=== PATIENT | female | born 1955 | race Caucasian/White ===

== ENCOUNTER 2022-06-07 08:20 | Inpatient (IN) ==
--- NOTE | 2022-05-24 13:13 | PAT Medication Instructions ---
Medication Instructions Date of Service May 24, 2022 Home Medications Flovent 1 dose INHALATION Q OTHER DAY albuterol 90 mcg/actuation aerosol inhaler 90 mcg INHALATION QID PRN albuterol sulfate 1 dose INHALATION UD PRN bupropion HCl 300 mg 24 hr tablet, extended release 300 mg PO QPM calcium carbonate 600 mg-vitamin D3 20 mcg (800 unit) chewable tablet (Caltrate 600 plus D) 1 tab PO QPM cholecalciferol (vitamin D3) 50 mcg (2,000 unit) tablet (Vitamin D3) 50 mcg PO QAM cyanocobalamin (vitamin B-12) 1,000 mcg/mL injection solution 1,000 mcg IM MONTHLY cyclosporine 0.05 % eye drops in a dropperette (Restasis) 1 drp OPHTHALMIC (EYE) Q12H famotidine 20 mg tablet 20 mg PO DAILY PRN ferrous sulfate 325 mg (65 mg iron) tablet (iron) 325 mg PO QAM hydrocodone 10 mg-acetaminophen 325 mg tablet 1 tab PO TID lisinopril 10 mg-hydrochlorothiazide 12.5 mg tablet 1 tab PO QAM magnesium oxide 400 mg PO BID megestrol 40 mg tablet 40 mg PO BID montelukast 10 mg tablet (Singulair) 10 mg PO PM omega 8-mrv-cdf-fish oil 1,200 mg (144 mg-216 mg) capsule (Fish Oil) 1 cap PO QPM Continue as directed Flovent 1 dose INHALATION Q OTHER DAY ASK your prescriber and surgeon megestrol 40 mg tablet 40 mg PO BID STOP taking 2 weeks before surgery (or as soon as possible if surgery is within 2 weeks) omega 7-uua-wxz-fish oil 1,200 mg (144 mg-216 mg) capsule (Fish Oil) 1 cap PO QPM DO NOT take the morning of surgery cholecalciferol (vitamin D3) 50 mcg (2,000 unit) tablet (Vitamin D3) 50 mcg PO QAM cyanocobalamin (vitamin B-12) 1,000 mcg/mL injection solution 1,000 mcg IM MONTHLY ferrous sulfate 325 mg (65 mg iron) tablet (iron) 325 mg PO QAM lisinopril 10 mg-hydrochlorothiazide 12.5 mg tablet 1 tab PO QAM magnesium oxide 400 mg PO BID Take morning of surgery With a small sip of water, OTHERWISE NOTHING TO EAT OR DRINK AFTER MIDNIGHT: albuterol 90 mcg/actuation aerosol inhaler 90 mcg INHALATION QID PRN (if needed) albuterol sulfate 1 dose INHALATION UD PRN (use if needed; please bring rescue inhaler with you to hospital day of surgery if possible) cyclosporine 0.05 % eye drops in a dropperette (Restasis) 1 drp OPHTHALMIC (EYE) Q12H famotidine 20 mg tablet 20 mg PO DAILY PRN (if needed) hydrocodone 10 mg-acetaminophen 325 mg tablet 1 tab PO TID (if needed) Take evening before surgery albuterol 90 mcg/actuation aerosol inhaler 90 mcg INHALATION QID PRN (if needed) albuterol sulfate 1 dose INHALATION UD PRN (if needed) bupropion HCl 300 mg 24 hr tablet, extended release 300 mg PO QPM calcium carbonate 600 mg-vitamin D3 20 mcg (800 unit) chewable tablet (Caltrate 600 plus D) 1 tab PO QPM cyclosporine 0.05 % eye drops in a dropperette (Restasis) 1 drp OPHTHALMIC (EYE) Q12H famotidine 20 mg tablet 20 mg PO DAILY PRN(if needed) hydrocodone 10 mg-acetaminophen 325 mg tablet 1 tab PO TID magnesium oxide 400 mg PO BID montelukast 10 mg tablet (Singulair) 10 mg PO PM Other Notes If you have any questions please call us at [phone] or [phone] or [phone] or [phone]
--- NOTE | 2022-05-25 13:25 | Anesthesiology Consultation ---
Date of Service May 25, 2022 Assessment & Plan (1) Encounter for pre-operative examination: - surgeon ordered medical clearance. - COVID screening: Per assessment on 05/25/2022: Travel screen negative, no known COVID-19 positive contacts or current COVID-19 related symptoms in past 2 weeks. Pt vaccinated. Surgeon arranging preop COVID testing, scheduled 06/05/2022. Awaiting results. Chart Review Chart Review: Pending: Refer to Additional Notes / Consult section and Patient seen in Pre Admission Testing Teaching & Discussion Pre-Anesthesia Teaching/Discussion Notes: Instructed NPO after midnight before surgery, except medications with 15 cc of water. Medication instructions provided according to the PAT guidelines. History Surgery Operation Date: 06/07/22 10:05 Proposed Procedures p L3-L4 Decompression Fusion Possible L4-L5, Spinal Cord Monitoring - Heron Rojas DO Height/Weight Height: 5 ft 5 in Weight: 98.8 kg Allergies Allergy/AdvReac Type Severity Reaction Status Date / Time enoxaparin [From Lovenox] Allergy Hives Verified 05/24/22 12:11 iodine Allergy Swelling Verified 05/24/22 12:11 of Lip/Tongue/Throat minocycline [From Minocin] Allergy Rash Verified 05/24/22 12:11 Medications Home Medications Medication Instructions Recorded Confirmed Last Taken Flovent 1 dose INHALATION Q OTHER DAY 05/24/22 05/24/22 Unknown albuterol 90 mcg/actuation aerosol 90 mcg INHALATION QID PRN 05/24/22 05/24/22 U nknown inhaler albuterol sulfate 1 dose INHALATION UD PRN 05/24/22 05/24/22 Unknown bupropion HCl 300 mg 24 hr tablet, 300 mg PO QPM 05/24/22 05/24/22 Unknown extended release calcium carbonate 600 mg-vitamin 1 tab PO QPM 05/24/22 05/24/22 Unknown D3 20 mcg (800 unit) chewable tablet (Caltrate 600 plus D) cholecalciferol (vitamin D3) 50 50 mcg PO QAM 05/24/22 05/24/22 Unknown mcg (2,000 unit) tablet (Vitamin D3) cyanocobalamin (vitamin B-12) 1,000 mcg IM MONTHLY 05/24/22 05/24/22 Unknown 1,000 mcg/mL injection solution cyclosporine 0.05 % eye drops in a 1 drp OPHTHALMIC (EYE) Q12H 05/24/22 05/24/22 Unknown dropperette (Restasis) famotidine 20 mg tablet 20 mg PO DAILY PRN 05/24/22 05/24/22 Unknown ferrous sulfate 325 mg (65 mg 325 mg PO QAM 05/24/22 05/24/22 Unknown iron) tablet (iron) hydrocodone 10 mg-acetaminophen 1 tab PO TID 05/24/22 05/24/22 Unknown 325 mg tablet lisinopril 10 1 tab PO QAM 05/24/22 05/24/22 Unknown mg-hydrochlorothiazide 12.5 mg tablet magnesium oxide 400 mg PO BID 05/24/22 05/24/22 Unknown megestrol 40 mg tablet 40 mg PO BID 05/24/22 05/24/22 Unknown montelukast 10 mg tablet 10 mg PO PM 05/24/22 05/24/22 Unknown (Singulair) omega 3-mpq-jgt-fish oil 1,200 mg 1 cap PO QPM 05/24/22 05/24/22 Unknown (144 mg-216 mg) capsule (Fish Oil) methocarbamol 05/25/22 Unknown Past Medical History Medical History (Updated 05/25/22 @ 14:08 by Fernanda Waldron PA-C) Anxiety and depression Asthma rare use of PRN inh; follows with Dr. Vega-last rescue inhaler use > several months Chronic kidney disease (CKD) Stage III; follows with [facility] COPD (chronic obstructive pulmonary disease) and h/o RLL wedge resection DDD (degenerative disc disease) Endometrial cancer with lung mets - dx/d 2013; treated surgically + chemo Fibromyalgia GERD (gastroesophageal reflux disease) controlled, stable per pt History of basal cell carcinoma skin, R medial to eye History of migraine History of phlebitis HLD (hyperlipidemia) HTN (hypertension) Microscopic hematuria "present for years" Osteoporosis Pt denies Scoliosis Shuffling gait Sleep apnea CPAP-intermittent use d/t frequent nocturnal awakenings to void Spinal stenosis Thyroid nodule Patient denies h/o stroke, seizures, heart attack, heart failure, DM, blood clots or blood transfusions. Exercise / Class Metabolic Activity III < 4 Walking/Shop/Light housework (SOB with activities chronic per pt with asthma/lung resection; denies chest discomfort; denies change or worsening) Past Family History Family History Other No family history of adverse response to anesthesia Past Surgical History Surgical History (Updated 05/25/22 @ 14:08 by Fernanda Waldron PA-C) History of basal cell carcinoma (BCC) excision History of bilateral breast reduction surgery History of carpal tunnel release History of colonoscopy History of cystoscopy History of esophagogastroduodenoscopy (EGD) History of non-cataract eye surgery History of surgery RLL wedge resection 2013 History of total abdominal hysterectomy and bilateral salpingo-oophorectomy S/P thyroid biopsy benign Past Anesthesia History No Hx of Anesthesia Complications and No Family Hx of Anesthesia Complications History of PONV No Hx of PONV and No Hx of Motion Sickness Social History Smoking Status: Never smoker Do You Dip or Chew Tobacco: No Hx Alcohol Use: No Hx Substance Use: Yes substance use type: marijuana Substance Use Type Other:: medical marijuana Last Used Substance: Unknown Last Used Substance Other:: rare use of medical marijuana per pt-advised Review of Systems Patient denies chest pain, fever, chills or palpitations. Physical Exam Vital Signs Vitals BP 117/72 P 81 TEMP 98.7 SP02 99% on RA RESP 17 Physical Full cervical extension range of motion without pain TMD 3.5 finger breaths Mallampati Score 2 Dentition: intact, implants-one lower back, several sides bilat; denies chipped or loose teeth, caps/crowns or bridges. She reports recent dental work and was advised she needs to notify surgeon's office. She verbalized understanding and agreement, denied questions or concerns regarding this. Lungs: normal respiratory effort. Clear throughout to auscultation, no adventitious breath sounds Cardiac: regular rate and rhythm, no murmurs noted Carotid arteries: negative bruit bilat Lab Results Anesthesia Preop Results Results Anesthesia Widget: WBC 7.89 K/uL (4.8-10.8) 05/25/22 Hgb 12.1 g/dL (12.0-16.0) 05/25/22 Hct 36.8 % (37-47) L 05/25/22 Plt 369 K/uL (130-400) 05/25/22 Na 137 mmol/L (136-145) 05/25/22 K 4.0 mmol/L (3.5-5.1) 05/25/22 Cl 101 mmol/L (98-107) 05/25/22 CO2 27 mmol/L (21-32) 05/25/22 BUN 24 mg/dl (6-23) H 05/25/22 Creat 1.34 mg/dl (0.6-1.2) H 05/25/22 Glucose Level 103 mg/dl (70-99(Fasting)) H 05/25/22 PT 9.9 Seconds (9.0-12.0) 05/25/22 PTT 25.9 Seconds (21.0-31.0) 05/25/22 INR 0.9 (0.9-1.1) 05/25/22 Urine Color Yellow 05/25/22 Urine Appearance Clear (Clear) 05/25/22 Urine pH 6.5 (4.5-7.5) 05/25/22 Urine Specific [place] 1.011 (1.000-1.030) 05/25/22 Urine Protein Negative (Negative) 05/25/22 Urine Glucose (UA) Negative (Negative) 05/25/22 Urine Ketones Negative (Negative) 05/25/22 Urine Blood Trace (Negative) H 05/25/22 Urine Nitrite Negative (Negative) 05/25/22 Urine Bilirubin Negative (Negative) 05/25/22 Urine Urobilinogen Negative (Negative) 05/25/22 Urine Leukocyte Esterase Negative (Negative) 05/25/22 Urine WBC (Auto) 0 /hpf (0-5) 05/25/22 Urine RBC (Auto) 0-4 /hpf (0-4) 05/25/22 Urine Hyaline Casts (Auto) 0 /lpf (0-5) 05/25/22 Urine Epithelial Cells (Auto) 0-5 /lpf (0-5) 05/25/22 Urine Bacteria (Auto) Negative (Negative) 05/25/22 Blood Type O Positive 05/25/22 Antibody Screen NEGATIVE 05/25/22 Testing Electrocardiogram Date: 05/25/22 NSR, rate 76 bpm Chest X-Ray Date: 05/25/22 No lines and tubes are seen. Postsurgical changes are noted in the right lung. The cardiomediastinal silhouette is normal. The lungs are clear. No evidence of pleural effusion or pneumothorax. Scoliosis and multilevel compression deformities are seen in the spine. IMPRESSION: No acute chest disease.
[~2022-06-07 08:20] MED LIST: ACETAMINOPHEN 500 MG TAB PO SCH; GABAPENTIN 300 MG CAP PO SCH; LR 15ML/HR IV SCH; ceFAZolin 2000MG 2,000 MG/15 ML SYR IV SCH
[2022-06-07] MEDS ORDERED: ATROPINE SULFATE 0.1 MG/ML 10ML SYR IV PRN (08:36)
[2022-06-07] MEDS ORDERED: MEPERIDINE HCL 25 MG/ML CARP/VIAL IV PRN (08:36)
[2022-06-07] MEDS ORDERED: LABETALOL HCL IV 5 MG/ML 20ML IV PRN (08:36)
[2022-06-07] MEDS ORDERED: ePHEDrine sulfate 50 MG/ML AMP IV PRN (08:36)
[2022-06-07] MEDS ORDERED: ONDANSETRON INJ 2 MG/ML 2 ML VIAL IV PRN ×2 (08:36→14:18)
[2022-06-07] MEDS ORDERED: PHENYLEPHRINE 100MCG/ML 5ML SYR IV PRN (08:36)
[2022-06-07] MEDS ORDERED: PROPOFOL IV EMULSION 10 MG/ML 20 ML VIAL IV ONE (09:36)
[2022-06-07] MEDS ORDERED: LIDOCAINE 2% 2 ML VIAL/AMP(20MG/ML) INFIL ONE (09:36)
[2022-06-07] MEDS ORDERED: ONDANSETRON INJ 2 MG/ML 2 ML VIAL ONE (09:36)
[2022-06-07] MEDS ORDERED: MIDAZOLAM HCL 1 MG/ML 2ML VIAL ONE (09:36)
[2022-06-07] MEDS ORDERED: ROCURONIUM BROMIDE 10 MG/ML 5 ML VIAL IV ONE (09:36)
[2022-06-07] MEDS ORDERED: DEXAMETHASONE SOD INJ 4 MG/ML VIAL ONE (09:36)
[2022-06-07] MEDS ORDERED: fentaNYL citrate 100 MCG/2 ML VIAL ONE (09:36)
--- NOTE | 2022-06-07 09:53 | History & Physical Bridge Note ---
Date of Service June 07, 2022 History & Physical Bridge Note I have examined the patient, reviewed the History & Physical and in the interval since the performance of the History & Physical I have noted the following changes of clinical significance: no changes noted
--- NOTE | 2022-06-07 09:56 | History & Physical Report ---
Date of Service June 07, 2022 Assessment & Plan (1) Neurogenic claudication due to lumbar spinal stenosis: Plan: L3-L4 decompression and fusion, possible L4-L5 History of Present Illness Chief Complaint: Back and leg pain Primary Care Provider: Austin Disla This is a 58-year-old female who presents with chronic persistent back and leg pain. Failing course of nonoperative care she is here for surgical invention. Allergies Allergy/AdvReac Type Severity Reaction Status Date / Time enoxaparin [From Lovenox] Allergy Hives Verified 06/07/22 08:54 iodine Allergy Swelling Verified 06/07/22 08:54 of Lip/Tongue/Throat minocycline [From Minocin] Allergy Rash Verified 06/07/22 08:54 Home Medications Medication Instructions Recorded Confirmed Type Flovent 1 dose inhalation Q OTHER DAY 05/24/22 06/07/22 History albuterol 90 mcg/actuation aerosol 90 mcg inhalation QID PRN sob 05/24/22 05/24/22 History inhaler albuterol sulfate 1 dose inhalation UD PRN sob 05/24/22 06/07/22 History bupropion HCl 300 mg 24 hr tablet, 300 mg PO QPM 05/24/22 06/07/22 History extended release calcium carbonate 600 mg-vitamin 1 tab PO QPM 05/24/22 06/07/22 History D3 20 mcg (800 unit) chewable tablet (Caltrate 600 plus D) cholecalciferol (vitamin D3) 50 50 mcg PO QAM 05/24/22 06/07/22 History mcg (2,000 unit) tablet (Vitamin D3) cyanocobalamin (vitamin B-12) 1,000 mcg IM MONTHLY 05/24/22 06/07/22 History 1,000 mcg/mL injection solution cyclosporine 0.05 % eye drops in a 1 drp ophthalmic (eye) Q12H 05/24/22 06/07/22 History dropperette (Restasis) famotidine 20 mg tablet 20 mg PO DAILY PRN gerd 05/24/22 06/07/22 History ferrous sulfate 325 mg (65 mg 325 mg PO QAM 05/24/22 06/07/22 History iron) tablet (iron) hydrocodone 10 mg-acetaminophen 1 tab PO TID 05/24/22 06/07/22 History 325 mg tablet lisinopril 10 1 tab PO QAM 05/24/22 06/07/22 History mg-hydrochlorothiazide 12.5 mg tablet magnesium oxide 400 mg PO BID 05/24/22 06/07/22 History megestrol 40 mg tablet 40 mg PO BID 05/24/22 06/07/22 History montelukast 10 mg tablet 10 mg PO PM 05/24/22 06/07/22 History (Singulair) omega 0-axl-smr-fish oil 1,200 mg 1 cap PO QPM 05/24/22 06/07/22 History (144 mg-216 mg) capsule (Fish Oil) methocarbamol 05/25/22 History Past Med/Surg History Medical History (Updated 06/07/22 @ 09:54 by Heron Rojas DO) Anxiety and depression Asthma rare use of PRN inh; follows with Dr. Vega-last rescue inhaler use > several months Chronic kidney disease (CKD) Stage III; follows with [facility] COPD (chronic obstructive pulmonary disease) and h/o RLL wedge resection DDD (degenerative disc disease) Endometrial cancer with lung mets - dx/d 2013; treated surgically + chemo Fibromyalgia GERD (gastroesophageal reflux disease) controlled, stable per pt History of basal cell carcinoma skin, R medial to eye History of migraine History of phlebitis HLD (hyperlipidemia) HTN (hypertension) Microscopic hematuria "present for years" Obesity Osteoporosis Pt denies Scoliosis Shuffling gait Sleep apnea CPAP-intermittent use d/t frequent nocturnal awakenings to void Spinal stenosis Thyroid nodule Surgical History History of basal cell carcinoma (BCC) excision History of bilateral breast reduction surgery History of carpal tunnel release History of colonoscopy History of cystoscopy History of esophagogastroduodenoscopy (EGD) History of non-cataract eye surgery History of surgery RLL wedge resection 2013 History of total abdominal hysterectomy and bilateral salpingo-oophorectomy S/P thyroid biopsy benign Family History Other No family history of adverse response to anesthesia Social History Smoking Status: Never smoker Second Hand Exposure: No; Do You Dip or Chew Tobacco: No; Hx Alcohol Use: No Hx Substance Use: Yes Last Used Substance: Unknown Last Used Substance Other:: rare use of medical marijuana per pt-advised Substance Use Type Other:: medical marijuana Preferred Language: Turkmen Communication Ability: Effective Senior Hardware Design Engineer Required: No Beliefs That Will Affect Care: None Current Living Situation: Spouse Feels Safe at Home: Yes Safety Concerns: Feels Safe At This Time Assistive Devices: CPAP and Glasses Physical Exam Physical Exam: Patient is alert and oriented Heart regular rate and rhythm Lungs clear Results & Data Results & Data ([facility]) Vital Signs (Past 12 Hours) Vital Signs Temp Pulse Resp BP Pulse Ox O2 Del Method 06/07/22 09:06 36.5 C 87 18 154/75 H 100 Room Air
[2022-06-07] MEDS ORDERED: ceFAZolin 330 MG/ML 1 GM VIAL ONE (10:22)
[2022-06-07] MEDS ORDERED: BUPIVACAINE/EPINEPHRINE 0.25% 1:200,000 30 ML VIAL ONE (10:22)
[2022-06-07] MEDS ORDERED: PHENYLEPHRINE 100MCG/ML 5ML SYR ONE (11:20)
[2022-06-07] MEDS ORDERED: GLYCOPYRROLATE 0.2 MG/ML VIAL ONE (11:36)
[2022-06-07] MEDS ORDERED: NEOSTIGMINE METHYLSULFATE 1 MG/ML 10ML VIAL ONE (11:36)
[2022-06-07] MEDS ORDERED: FLOSEAL HEMOSTATIC MATRIX 10ML TOP ONE (12:18)
--- NOTE | 2022-06-07 12:27 | Operative Report ---
Post Operative Report Pre & Post Diagnosis Operation Date: 06/07/22 10:05 Pre-Op Diagnosis: Neurogenic claudication due to lumbar spinal stenosis Post-Op Diagnosis: Neurogenic claudication due to lumbar spinal stenosis I identified the patient and participated in the time-out.: Yes Procedure Operation Date: 06/07/22 10:05 Actual Procedures #1 lumbar decompression bilateral medial facetectomies and foraminotomies L2-L3 L3-L4. #2 posterior spinal fusion L3-L4. #3 placement posterior instrumentation L3-4. #4 interbody fusion L3-L4. #5 placement of Spira 10 x 26 mm cage L3-L4. #6 placement locally harvested morselized autograft in the posterior gutters. #7 placement of I factor combined with V toss interbody space and posterior lateral gutters. Surgeon Heron Rojas, DO Residential Real Estate Assistant Tami Valle Estimated Blood Loss 200 Findings See Below The patient is 5 foot 5 inches tall weighing over 98 kg with a BMI in excess of 36. The patient's body habitus did contribute to significant technical dif ficulty required deeper retractors and longer instruments in order to perform her procedure. There is at least 50% increased operative time. Specimens None Indications This is a 66-year-old female who presents above-mentioned diagnosis after failing course of nonoperative care is here for surgical invention. Description of Procedure Patient was met with identified informed consent obtained. Patient was then taken to the operative suite underwent intubation placed in a prone position on the Waldo table on top of the Kevin frame. All bony prominences well-padded eyes inspected to ensure no external pressure placed upon them. This point lumb ar spine was prepped and draped in normal sterile fashion. Sharp dissection with the assistance of Bovie cautery performed down to and exposing the lamina and transverse processes of L3 and L4. From a caudal cephalad fashion complete laminectomy L3 partial laminectomy of L2 was performed including bilateral medial facetectomies and foraminotomies addressing severe neural compression. Pedicle screws then placed in L3 and L4 bilaterally with assistance of fluoroscopy and the properly sized maame placed. By way the transforaminal approach on the right a complete discectomy of L3-L4 was performed endplates curetted to subcortical bleeding bone and a 10 x 26 mm spiral cage filled I factor tapped in position. The rods were then locked in final position bilaterally. The transverse processes of L3 and L4 burred to subcortical bleeding bone. I factor V toss and locally harvested morselized autograft was placed in the posterior gutters. 15 round KRYSTA drain inserted. The incision was then closed with 1 Vicryl the fascia 2-0 Vicryl subcutaneously and 4 Monocryl for final skin closure. Steri-Strip sterile dressings placed. Patient will continue PACU stable condition. Please note spinal cord monitoring was utilized at the procedure no changes noted. Lastly Tami Valle was present at the entire surgery and while the patient positioning complex portions of the surgery and final skin closure. I attest to the content of the Intraoperative Record and any orders documented therein. Any exceptions are noted below.
--- NOTE | 2022-06-07 12:34 | Fluoroscopy Report ---
FL lumbar spine 2-3V CLINICAL HISTORY: L3-4 DFI POSSIBLE L4-5 TECHNIQUE: 2 views were obtained with the C-arm in the OR with the above procedure. Total fluoroscopy time was 36.6 seconds. Total skin dose was 25.4 mGy. Comparison: None available at the time of this dictation. FINDINGS/IMPRESSION: Intraoperative images were obtained of L3-L4 discectomy and fusion. Please correlate with intraoperative fluoroscopy and operative report. ACT 112: Negative or not required by law. Electronically signed by: Klaus Mayorag M.D. 06/07/2022 12:32 PM
[2022-06-07] MEDS: fentaNYL citrate 100 MCG/2 ML VIAL IV PRN ×4 (12:50→13:05)
[2022-06-07] MEDS: HYDROmorphone INJ 1 MG/ML SYRINGE IV PRN ×2 (13:10→13:40)
--- NOTE | 2022-06-07 14:12 | Anesthesiology Progress Note ---
Date of Service June 07, 2022 Anesthesia Post Procedure Vital Signs Vital Signs: Temp Pulse Pulse Resp BP BP Pulse Ox 06/07/22 13:40 69 13 134/96 99 06/07/22 13:50 68 16 142/85 H 99 06/07/22 13:30 68 13 138/88 100 06/07/22 13:00 67 16 140/81 100 06/07/22 13:20 36.6 C 73 16 138/81 100 06/07/22 13:10 65 15 133/79 100 06/07/22 12:50 68 14 133/83 100 06/07/22 12:42 36.3 C L 70 14 119/81 100 06/07/22 09:06 36.5 C 87 18 154/75 H 100 O2 Del Method O2 Flow Rate 06/07/22 13:40 Nasal Cannula 2 06/07/22 13:50 Nasal Cannula 2 06/07/22 13:30 Nasal Cannula 2 06/07/22 13:00 Oxymask 2 06/07/22 13:20 Nasal Cannula 2 06/07/22 13:10 Nasal Cannula 2 06/07/22 12:50 Oxymask 2 06/07/22 12:42 Oxymask 4 06/07/22 09:06 Room Air Pain Intensity Lower Back: Pain Intensity: 2 Transfer of Care Handoff Completed per policy Notes Mental Status: alert / awake / arousable Patient Amnestic to Procedure: Yes Nausea / Vomiting: adequately controlled Pain: adequately controlled Airway Patency, RR, SpO2: stable & adequate BP & HR: stable & adequate Hydration State: stable & adequate Anesthetic Complications: no major complications apparent and Pt Satisfied with anesthetic care
[2022-06-07] MEDS ORDERED: MAGNESIUM HYDROXIDE SUSP 30 ML UDC PO PRN (14:18)
[2022-06-07] MEDS ORDERED: bisacodyL 10 MG SUPP PR PRN (14:18)
[2022-06-07] MEDS ORDERED: ACETAMINOPHEN 1,000 MG/100 ML VIAL IV PRN (14:18)
[2022-06-07] MEDS ORDERED: ONDANSETRON 4 MG OD TAB PO PRN (14:18)
[2022-06-07] MEDS ORDERED: NALOXONE HCL 0.4 MG/1 ML VIAL/CARP IV PRN (14:18)
[2022-06-07] MEDS ORDERED: METOCLOPRAMIDE HCL INJ 5 MG/ML 2 ML VIAL IV PRN (14:18)
[2022-06-07] MEDS ORDERED: ACETAMINOPHEN 500 MG TAB PO PRN (14:18)
[2022-06-07] MEDS ORDERED: oxyCODONE HCL IR 5 MG TAB (IMMEDIATE RELEASE) PO PRN (14:18)
[2022-06-07] MEDS ORDERED: PROMETHAZINE HCL 12.5 MG in SODIUM CHLORIDE 0.9% 50 ML IV PRN (14:18)
[2022-06-07] MEDS ORDERED: hydrOXYzine HCl 25 MG TAB PO PRN (14:18)
[2022-06-07] MEDS ORDERED: ALUMINUM/MAGNESIUM SUSP 30 ML UDC PO PRN (14:18)
[2022-06-07] MEDS ORDERED: diphenhydrAMINE Capsule 25 MG CAP PO PRN (14:18)
[2022-06-07] MEDS ORDERED: LORazepam 0.5 MG in SYRINGE 0.25 ML IV PRN (14:18)
[2022-06-07] MEDS ORDERED: SOD PHOSPHATE/SOD BIPHOSPHATE ENEMA 132 ML BTL PR PRN (14:18)
[2022-06-07] MEDS ORDERED: FLOVENT INH SCH (14:18)
[2022-06-07] MEDS ORDERED: FAMOTIDINE 20 MG TAB PO PRN ×2 (14:18)
--- NOTE | 2022-06-07 14:37 | Consultation ---
Date of Consultation June 07, 2022 Assessment & Plan (1) Status post lumbar surgery: Post op day# 0 S/P L2-L4 decompression and fusion by Dr Rojas EBL# 200ml -pain management per ortho -wound management per ortho -PT/OT as appropriate -DVT prophylaxis per ortho -incentive spirometry -monitor H&H for acute blood loss anemia; pre-op Hgb: 12 (2) Asthma: No acute exacerbation -Continue home inhalers, albuterol prn (3) Chronic kidney disease (CKD): CKD III Cr: 1.34 in 04/2022 -Monitor renal functions, avoid nephrotoxic agents when possible (4) HTN (hypertension): -Continue lisinopril, HCTZ tomorrow (5) Sleep apnea: -CPAP HS (6) Anxiety and depression: -Continue bupropion DVT Prophylaxis -SCDs Disposition per primary service Follows with Dr Austin Disla in [place] for routine care Pt was seen and care coordinated with Dr Springer. See addendum Thank you for this consultation. We will follow the patient with you during their hospital stay. You can reach a member of the [facility] Hospitalist Team 18/06 via [facility] Supervising Physician Co-Signing Physician Notes Patient was seen and examined with Elida ADDISON at bedside. Chart reviewed. Case discussed with her and agree with the documentation above. In summary, this is a 66 year old female with MARRY on CPAP, asthma on inhaler, HTN, lumbar spinal stenosis with neurogenic claudication who underwent lumbar decompression L2-L, L3-L4 with spinal fusion today by Dr Rojas. Hospitalist service was consulted for postop medical management. During our encounter, at bedside. She is AAO, lying in bed with head end elevated, feeling cold and covered with multiple blankets, in pain 9/10 and asking for pain medication. Asking for something to drink. States the only medicine she took this morning was norco and pepcid. No chest pain, N/V, shortness of breath. Chest clear anteriorly, heart sounds normal, abd benign, LE with SCDs, KRYSTA drain with serosanguineous output. Surgical management per primary team. Continue inhalers. Resume BP meds likely from tomorrow morning if BP stable. Continue CPAP hs- brought machine from home. Repeat labs in am. Rest as per the note above. History of Present Illness Requesting Physician: Dr Rojas Reason for Consultation: Post op medical management Attending Physician: Heron Rojas, DO History of Present Illness Patient is 66 y/o F with PMH HTN, HLD, asthma, CKD III, anxiety, MARRY, obesity seen in medical consultation s/p L2-L4 decompression and fusion today by Dr Rojas. Post op patient reports low back pain. Denies lower extremity pain or paresthesias. Reports feels cold post op and has warm blankets on her and feels somewhat improved. Denies nausea or vomiting. Reports last BM yesterday. Denies fever, diaphoresis, SHERWOOD, dizziness, syncope, vision changes, neck pain, CP, SOB, orthopnea, palpitations, cough, sore throat, choking, otalgia, rhinorrhea, abdominal pain, paresthesias, weakness, extremity edema, rashes, dysuria, hematuria. Allergies Allergy/AdvReac Type Severity Reaction Status Date / Time enoxaparin [From Lovenox] Allergy Hives Verified 06/07/22 08:54 iodine Allergy Swelling Verified 06/07/22 08:54 of Lip/Tongue/Throat minocycline [From Minocin] Allergy Rash Verified 06/07/22 08:54 Home Medications Medication Instructions Recorded Confirmed Type albuterol 90 mcg/actuation aerosol 90 mcg inhalation QID PRN sob 05/24/22 05/24/22 History inhaler bupropion HCl 300 mg 24 hr tablet, 300 mg PO QPM 05/24/22 06/07/22 History extended release calcium carbonate 600 mg-vitamin 1 tab PO QPM 05/24/22 06/07/22 History D3 20 mcg (800 unit) chewable tablet (Caltrate 600 plus D) cholecalciferol (vitamin D3) 50 50 mcg PO QAM 05/24/22 06/07/22 History mcg (2,000 unit) tablet (Vitamin D3) cyanocobalamin (vitamin B-12) 1,000 mcg IM MONTHLY 05/24/22 06/07/22 History 1,000 mcg/mL injection solution cyclosporine 0.05 % eye drops in a 1 drp ophthalmic (eye) Q12H 05/24/22 06/07/22 History dropperette (Restasis) famotidine 20 mg tablet 20 mg PO DAILY PRN gerd 05/24/22 06/07/22 History ferrous sulfate 325 mg (65 mg 325 mg PO QAM 05/24/22 06/07/22 History iron) tablet (iron) hydrocodone 10 mg-acetaminophen 1 tab PO TID 05/24/22 06/07/22 History 325 mg tablet lisinopril 10 1 tab PO QAM 05/24/22 06/07/22 History mg-hydrochlorothiazide 12.5 mg tablet magnesium oxide 400 mg PO BID 05/24/22 06/07/22 History megestrol 40 mg tablet 40 mg PO BID 05/24/22 06/07/22 History montelukast 10 mg tablet 10 mg PO PM 05/24/22 06/07/22 History (Singulair) omega 7-cgu-xpa-fish oil 1,200 mg 1 cap PO QPM 05/24/22 06/07/22 History (144 mg-216 mg) capsule (Fish Oil) albuterol sulfate 2.5 mg inhalation QID PRN 06/07/22 06/07/22 History Shortness Of Breath Or Wheezing budesonide-formoterol HFA 80 2 inh inhalation BID 06/07/22 06/07/22 History mcg-4.5 mcg/actuation aerosol inhaler (Symbicort) hydroxyzine pamoate 25 mg capsule 25 cap PO TID PRN Anxiety 06/07/22 06/07/22 History (Vistaril) methocarbamol 500 mg tablet 500 tab PO Q6H PRN Muscle Spasm 06/07/22 06/07/22 History Patient History Medical History (Updated 06/07/22 @ 15:48 by Elida Dodson PA-C) Anxiety and depression Asthma rare use of PRN inh; follows with Dr. Vega-last rescue inhaler use > several months Chronic kidney disease (CKD) Stage III; follows with [facility] COPD (chronic obstructive pulmonary disease) and h/o RLL wedge resection DDD (degenerative disc disease) Endometrial cancer with lung mets - dx/d 2013; treated surgically + chemo Fibromyalgia GERD (gastroesophageal reflux disease) controlled, stable per pt History of basal cell carcinoma skin, R medial to eye History of migraine History of phlebitis HLD (hyperlipidemia) HTN (hypertension) Microscopic hematuria "present for years" Obesity Osteoporosis Pt denies Scoliosis Shuffling gait Sleep apnea CPAP-intermittent use d/t frequent nocturnal awakenings to void Spinal stenosis Thyroid nodule Surgical History (Updated 06/07/22 @ 15:48 by Elida Dodson PA-C) History of basal cell carcinoma (BCC) excision History of bilateral breast reduction surgery History of carpal tunnel release History of colonoscopy History of cystoscopy History of esophagogastroduodenoscopy (EGD) History of non-cataract eye surgery History of surgery RLL wedge resection 2014 History of total abdominal hysterectomy and bilateral salpingo-oophorectomy S/P thyroid biopsy benign Family History Other No family history of adverse response to anesthesia Social History Smoking Status: Never smoker Second Hand Exposure: No; Do You Dip or Chew Tobacco: No; Hx Alcohol Use: No Hx Substance Use: Yes Last Used Substance: Unknown Last Used Substance Other:: rare use of medical marijuana per pt-advised Substance Use Type Other:: medical marijuana Preferred Language: Filipino Communication Ability: Effective Lead Assembler Required: No Beliefs That Will Affect Care: None marital status: Current Living Situation: Spouse Feels Safe at Home: Yes Safety Concerns: Feels Safe At This Time Assistive Devices: Cane and Walker Review of Systems Review of Systems: All systems reviewed & are unremarkable except as noted in HPI & below Physical Exam Physical Exam: General: no distress, overweight Head: normocephalic, atraumatic Eyes: conjunctiva non-injected, anicteric ENT: normal inspection external ears, nose, mucous membranes moist Neck: supple, trachea midline Lungs: clear, no respiratory distress, no wheezing/rhonchi/rales CV: RRR, no murmur, no pretibial edema Abd: normal BS, soft, non-tender Back: +KRYSTA drain in place with serosanguineous drainage Ext: no cyanosis, no calf tenderness; pedal pushes and pulls intact bilaterally, sensation to light touch intact bilaterally Neuro: A&O x 3, no focal deficits noted, normal affect Skin: warm, dry Results & Data ([facility]) Vital Signs (Past 12 Hours) Vital Signs Temp Pulse Pulse Resp BP BP Pulse Ox 06/07/22 14:24 36.4 C L 70 138/83 97 06/07/22 13:40 69 13 134/96 99 06/07/22 13:50 68 16 142/85 H 99 06/07/22 13:30 68 13 138/88 100 06/07/22 13:00 67 16 140/81 100 06/07/22 13:20 36.6 C 73 16 138/81 100 06/07/22 13:10 65 15 133/79 100 06/07/22 12:50 68 14 133/83 100 06/07/22 12:42 36.3 C L 70 14 119/81 100 06/07/22 09:06 36.5 C 87 18 154/75 H 100 O2 Del Method O2 Flow Rate 06/07/22 14:24 Room Air 06/07/22 13:40 Nasal Cannula 2 06/07/22 13:50 Nasal Cannula 2 06/07/22 13:30 Nasal Cannula 2 06/07/22 13:00 Oxymask 2 06/07/22 13:20 Nasal Cannula 2 06/07/22 13:10 Nasal Cannula 2 06/07/22 12:50 Oxymask 2 06/07/22 12:42 Oxymask 4 06/07/22 09:06 Room Air
[2022-06-07] MEDS ORDERED: ALBUTEROL HFA INHALER 8.5 GM INH PRN (14:54)
[2022-06-07] MEDS: LACTATED RINGER'S 1,000 ML IV SCH (14:55)
[2022-06-07] MEDS ORDERED: ALBUTEROL 0.083% NEBU SOLN 3 ML VIAL INH PRN (15:39)
[2022-06-07] MEDS: DOCUSATE SODIUM/SENNA 50/8.6MG TAB PO SCH (20:54)
[2022-06-07] MEDS: CALCIUM 600MG + VIT D 400 IU TAB PO SCH (20:54)
[2022-06-07] MEDS: MONTELUKAST SODIUM 10 MG TABLET PO SCH (20:54)
[2022-06-07] MEDS: buPROPion XL 300 MG TABCR PO SCH (20:54)
[2022-06-07] MEDS: MAGNESIUM OXIDE 400 MG TAB PO SCH (20:54)
[2022-06-07] MEDS: MEGESTROL ACETATE 40 MG TAB PO SCH (20:55)
[2022-06-07] MEDS: ceFAZolin 2000MG 2,000 MG/15 ML SYR IV SCH (21:57)
[2022-06-07] MEDS: LORazepam 0.5 MG TAB PO PRN (22:53)
[2022-06-08] MEDS: LACTATED RINGER'S 1,000 ML IV SCH ×2 (00:26→19:12)
[2022-06-08] MEDS: HYDROmorphone INJ 1 MG/ML SYRINGE IV PRN ×2 (01:18→22:35)
[2022-06-08] MEDS: ceFAZolin 2000MG 2,000 MG/15 ML SYR IV SCH (04:22)
[2022-06-08] MEDS: POLYETHYLENE (MIRALAX) 17 GM PACK PO SCH ×4 (05:55→20:53)
[2022-06-08 06:25] LABS: Basophils # (auto) 0.03 K/uL (0-0.2); Basophils % (auto) 0.3 %; Eosinophils # (auto) 0.03 K/uL (0-0.50); Eosinophils % (auto) 0.3 %; Hematocrit (blood only) 28.8 % (34.1-44.9); Hemoglobin 9.4 g/dl (12.0-16.0); Immature Granulocytes # (auto) 0.03 K/uL (0.00-0.02); Immature Granulocytes % (auto) 0.3 %; Mean Corpuscular Hemoglobin 29.7 pg (25.0-34.0); Mean Corpuscular Hgb Conc 32.6 g/dL (32.0-36.0); Mean Corpuscular Volume 91.1 fL (80.0-100.0); Mean Platelet Volume 8.9 fL (9.4-12.3); Monocytes % (auto) 7.9 %; Neutrophils # (auto) 6.54 K/uL (1.4-6.5); Neutrophils % (auto) 74.2 %; Platelet Count 249 K/uL (130-400); RDW Coefficient of Variation 12.4 % (11.5-14.5); RDW Standard Deviation 41.6 fL (36.4-46.3); Red Blood Count 3.16 M/uL (3.93-5.22); White Blood Count 8.83 K/ul (4.8-10.8)
[2022-06-08] MEDS: HYDROmorphone INJ 0.5 MG/0.5 ML SYR IV PRN (06:49)
[2022-06-08 07:03] LABS: Calcium 8.2 mg/dl (8.5-10.1); Creatinine Clr Calc Pharmacy 46.7 ml/min; Est GFR (African American) 46.6 ml/min; Est GFR (Non-African American) 40.2 ml/min
[2022-06-08] MEDS: CHOLECALCIFEROL 1,000 UNITS 25 MCG TAB PO SCH (08:33)
[2022-06-08] MEDS: FERROUS SULFATE 325 MG TAB PO SCH (08:33)
[2022-06-08] MEDS: dexAMETHasone 6 MG in SYRINGE 0 ML IV SCH (08:33)
[2022-06-08] MEDS: MAGNESIUM OXIDE 400 MG TAB PO SCH ×2 (08:33→20:49)
--- NOTE | 2022-06-08 08:37 | Orthopedic Progress Note ---
Date of Service June 08, 2022 Assessment & Plan (1) Neurogenic claudication due to lumbar spinal stenosis: Plan: This time initiate physical therapy occupational therapy assess her progress most likely transfer to rehab when cleared and bed available. Admission and Anticipated Discharge Date Admission Date: June 07, 2022 Subjective Patient's back pain is controlled leg pain improved Physical Exam Physical Exam: Patient is in bed. She appears comfortable. Is good strength testing lower extremities. Results & Data ([facility]) Vital Signs (Past 12 Hours) Vital Signs Temp Pulse Pulse Resp BP BP Pulse Ox 06/08/22 05:37 36.4 C L 74 16 116/72 99 06/08/22 01:57 37.1 C 86 16 101/62 93 06/07/22 22:42 37.4 C 85 16 130/77 99 O2 Del Method 06/08/22 05:37 Room Air 06/08/22 01:57 Room Air 06/07/22 22:42 CPAP
[2022-06-08] MEDS: MEGESTROL ACETATE 40 MG TAB PO SCH ×3 (08:39→20:52)
[2022-06-08] MEDS: traMADol HCL 50 MG TABLET PO PRN ×2 (08:49→15:15)
--- NOTE | 2022-06-08 08:54 | Hospitalist Progress Note ---
Date of Service June 08, 2022 Assessment & Plan (1) Status post lumbar surgery: Plan: Post op day#1 S/P L2-L4 decompression and fusion by Dr Rojas Monitor H&H (EBL 200ml, hgb 9.4 from pre-op hgb 12.2). Continue incentive spirometry, PT/OT when appropriate Per ortho for pain control, wound care, anticoagulation and activities (2) Asthma: Plan: No acute exacerbation Continue home inhalers, albuterol prn (3) Chronic kidney disease (CKD): Plan: CKD III Cr: 1.35 (at baseline) Monitor renal functions, avoid nephrotoxic agents when possible (4) HTN (hypertension): Plan: Continue lisinopril, HCTZ tomorrow (5) Sleep apnea: Plan: CPAP HS (6) Endometrial cancer: Plan: Dx/d 2013; treated surgically + chemo Still following with oncology in [place]. Megace on hold for 1 month after surgery, per oncologist (7) Anxiety and depression: Plan: Continue bupropion DVT Prophylaxis SCDs Disposition per primary service Follows with Dr Austin Disla in [place] for routine care Thank you for this consultation. We will follow the patient with you during their hospital stay. You can reach a member of the [facility] Farmist Team 18/06 via [email or web address] Admission and Anticipated Discharge Date Admission Date: June 07, 2022 Supervising Physician Co-Signing Physician Notes Patient was seen and evaluated independently. Chart reviewed. Can continue home medications. Patient reports chronic bilateral hip pain (R>L) and is concerned that may be related to her distant history of stage 4 endometrial cancer--> apparently she was recommended for PET scan by her oncologist but refused due to not wanting contrast. I encouraged her to follow up with her Oncologist and consider PET scan for further evaluation. Subjective Patient seen and examined in 303-1. Has some incision site pain today but otherwise feeling well. Tolerating diet without issue. Urinating on her own postoperatively. No flatus or bowel movement yet. No fever, chills, chest pain, shortness of breath, nausea, vomiting, abdominal pain. Review of Systems Review of Systems: At least ten systems reviewed and negative except as noted in the HPI. Physical Exam Physical Exam: Gen: WD/WN, NAD, sitting in bedside chair, A&Ox3 HEENT: Normocephalic, atraumatic, conjunctivae moist, sclerae anicteric, mucous membranes moist Lung: Clear to Auscultation bilaterally, no wheezes/rales/rhonchi Heart: Regular rate, regular rhythm, no murmurs, rubs, or gallops Abdomen: Soft, NT, ND +BS x 4 Extremities: +Spinal dressing c/d/i. KRYSTA drain visualized. No edema Skin: Warm, no rash Results & Data Results & Data ([facility]) Vital Signs (Past 12 Hours) Vital Signs Temp Pulse Pulse Resp BP BP Pulse Ox 06/08/22 05:37 36.4 C L 74 16 116/72 99 06/08/22 01:57 37.1 C 86 16 101/62 93 06/07/22 22:42 37.4 C 85 16 130/77 99 O2 Del Method 06/08/22 05:37 Room Air 06/08/22 01:57 Room Air 06/07/22 22:42 CPAP Laboratory Results Short CBC 06/08/22 Range/Units 06:09 WBC 8.83 (4.8-10.8) K/ul Hgb 9.4 L (12.0-16.0) g/dl Hct 28.8 L (34.1-44.9) % Plt Count 249 (130-400) K/uL BMP 06/08/22 06:09 Sodium 136 Potassium 4.0 Chloride 105 Carbon Dioxide 25 BUN 27 H Creatinine 1.35 H Glucose 112 H Calcium 8.2 L Diagnostic Findings Lumbar Spine X-Ray 06/07/22 10:05 FL lumbar spine 2-3V CLINICAL HISTORY: L3-4 DFI POSSIBLE L4-5 TECHNIQUE: 2 views were obtained with the C-arm in the OR with the above procedure. Total fluoroscopy time was 36.6 seconds. Total skin dose was 25.4 mG y. Comparison: None available at the time of this dictation. FINDINGS/IMPRESSION: Intraoperative images were obtained of L3-L4 discectomy and fusion. Please correlate with intraoperative fluoroscopy and operative report. ACT 112: Negative or not required by law. Electronically signed by: Klaus Mayorga M.D. 06/07/2022 12:32 PM
[2022-06-08] MEDS: FLUTICASONE/VILANTEROL 100/25MCG 14 PUFFS/INHALER INH SCH (10:25)
[2022-06-08] MEDS: LISINOPRIL/HCTZ 10/12.5MG TAB PO SCH (10:25)
[2022-06-08] MEDS: buPROPion XL 300 MG TABCR PO SCH (20:48)
[2022-06-08] MEDS: DOCUSATE SODIUM/SENNA 50/8.6MG TAB PO SCH (20:48)
[2022-06-08] MEDS: CALCIUM 600MG + VIT D 400 IU TAB PO SCH (20:48)
[2022-06-08] MEDS: MONTELUKAST SODIUM 10 MG TABLET PO SCH (20:49)
[2022-06-08] MEDS: HYDROCODONE/ACETAMOPHEN 5/325MG TAB PO PRN (21:12)
[2022-06-09] MEDS: HYDROmorphone INJ 1 MG/ML SYRINGE IV PRN (03:55)
[2022-06-09] MEDS: HYDROCODONE/ACETAMOPHEN 5/325MG TAB PO PRN ×2 (05:44→15:50)
[2022-06-09] MEDS: POLYETHYLENE (MIRALAX) 17 GM PACK PO SCH ×3 (05:45→17:37)
[2022-06-09 06:02] LABS: Hematocrit (blood only) 25.3 % (34.1-44.9); Hemoglobin 8.5 g/dl (12.0-16.0); Mean Corpuscular Hemoglobin 30.6 pg (25.0-34.0); Mean Corpuscular Hgb Conc 33.6 g/dL (32.0-36.0); Mean Platelet Volume 9.2 fL (9.4-12.3); Platelet Count 241 K/uL (130-400); RDW Coefficient of Variation 12.3 % (11.5-14.5); RDW Standard Deviation 40.9 fL (36.4-46.3); Red Blood Count 2.78 M/uL (3.93-5.22); White Blood Count 9.11 K/ul (4.8-10.8)
[2022-06-09 06:23] LABS: BUN Creatinine Ratio 22.8 (10-20); Calcium 8.7 mg/dl (8.5-10.1); Creatinine Clr Calc Pharmacy 55.3 ml/min; Est GFR (African American) 57.2 ml/min; Est GFR (Non-African American) 49.4 ml/min
[2022-06-09] MEDS: CHOLECALCIFEROL 1,000 UNITS 25 MCG TAB PO SCH (08:23)
[2022-06-09] MEDS: LISINOPRIL/HCTZ 10/12.5MG TAB PO SCH (08:23)
[2022-06-09] MEDS: MAGNESIUM OXIDE 400 MG TAB PO SCH ×2 (08:23→19:51)
[2022-06-09] MEDS: MEGESTROL ACETATE 40 MG TAB PO SCH ×4 (08:24→19:55)
[2022-06-09] MEDS: FLUTICASONE/VILANTEROL 100/25MCG 14 PUFFS/INHALER INH SCH (08:24)
[2022-06-09] MEDS: dexAMETHasone 6 MG in SYRINGE 0 ML IV SCH (08:24)
[2022-06-09] MEDS: FERROUS SULFATE 325 MG TAB PO SCH (08:24)
--- NOTE | 2022-06-09 10:58 | Hospitalist Progress Note ---
Date of Service June 09, 2022 Assessment & Plan (1) Status post lumbar surgery: Plan: Post op day#2 S/P L2-L4 decompression and fusion by Dr Rojas Continue incentive spirometry, PT/OT Per ortho for pain control, wound care, anticoagulation and activities (2) Acute blood loss anemia: Plan: Monitor H&H (EBL 200ml, hgb 8.5 was 9.4 yesterday). Pre-op hgb 12.1 Hemodynamically stable and asymptomatic Continue daily CBCs to monitor while admitted, transfuse for hgb <8 (3) Asthma: Plan: No acute exacerbation Continue home inhalers, albuterol prn (4) Chronic kidney disease (CKD): Plan: CKD III Cr: 1.14 (improved from baseline) Monitor renal functions, avoid nephrotoxic agents when possible (5) HTN (hypertension): Plan: Continue lisinopril, HCTZ tomorrow (6) Sleep apnea: Plan: CPAP HS (7) Endometrial cancer: Plan: Dx/d 2013; treated surgically + chemo Still following with oncology in [place]. Megace on hold for 1 month after surgery, per oncologist (8) Anxiety and depression: Plan: Continue bupropion DVT Prophylaxis SCDs Disposition per primary service Follows with Dr Austin Disla in [place], [place] for routine care Patient seen in collaboration with Dr. Zhang. Please see addendum. Thank you for this consultation. We will follow the patient with you during their hospital stay. You can reach a [facility] via [employer] Admission and Anticipated Discharge Date Admission Date: June 07, 2022 Supervising Physician Co-Signing Physician Notes Patient was seen and evaluated independently. Chart reviewed. Case discussed with ELIJAH Patient is stable for discharge from a medical perspective. Please call with questions. Subjective Patient seen and examined in 303-1. Has some incision site pain today but improved since yesterday. Also endorsing pain in L leg with ambulation that was present prior to surgery and has improved in post-operative setting. Ambulated the halls with PT this morning. Urinating on her own postoperatively. No flatus or bowel movement yet but on bowel regimen. No fever, chills, chest pain, shortness of breath, nausea, vomiting, abdominal pain or dysuria. Review of Systems Review of Systems: At least ten systems reviewed and negative except as noted in the HPI. Physical Exam Physical Exam: Gen: WD/WN, NAD, sitting in bedside chair, A&Ox3 HEENT: Normocephalic, atraumatic, conjunctivae moist, sclerae anicteric, mucous membranes moist Lung: Clear to Auscultation bilaterally, no wheezes/rales/rhonchi Heart: Regular rate, regular rhythm, no murmurs, rubs, or gallops Abdomen: Soft, NT, ND +BS x 4 Extremities: + Spinal dressing c/d/i. KRYSTA drain visualized. No edema Skin: Warm, no rash Results & Data Results & Data ([facility]) Vital Signs (Past 12 Hours) Vital Signs Temp Pulse Resp BP Pulse Ox O2 Del Method 06/09/22 07:16 36.9 C 75 16 115/70 98 Room Air Laboratory Results Short CBC 06/09/22 Range/Units 05:35 WBC 9.11 (4.8-10.8) K/ul Hgb 8.5 L (12.0-16.0) g/dl Hct 25.3 L (34.1-44.9) % Plt Count 241 (130-400) K/uL BMP 06/09/22 05:35 Sodium 139 Potassium 4.0 Chloride 106 Carbon Dioxide 27 BUN 26 H Creatinine 1.14 Glucose 100 H Calcium 8.7 Diagnostic Findings Lumbar Spine X-Ray 06/07/22 10:05 FL lumbar spine 2-3V CLINICAL HISTORY: L3-4 DFI POSSIBLE L4-5 TECHNIQUE: 2 views were obtained with the C-arm in the OR with the above procedure. Total fluoroscopy time was 36.6 seconds. Total skin dose was 25.4 mGy. Comparison: None available at the time of this dictation. FINDINGS/IMPRESSION: Intraoperative images were obtained of L3-L4 discectomy and fusion. Please correlate with intraoperative fluoroscopy and operative report. ACT 112: Negative or not required by law. Electronically signed by: Klaus Mayorga M.D. 06/07/2022 12:32 PM
--- NOTE | 2022-06-09 14:21 | Orthopedic Progress Note ---
Date of Service June 09, 2022 Assessment & Plan (1) Neurogenic claudication due to lumbar spinal stenosis: Plan: At this time we will continue physical therapy and await placement for rehab. Admission and Anticipated Discharge Date Admission Date: June 07, 2022 Subjective Patient is back pain is controlled leg symptoms improved. She is tolerating therapy. Physical Exam Physical Exam: On exam she is in the chair at the bedside. Is good strength testing. Results & Data ([facility]) Vital Signs (Past 12 Hours) Vital Signs Temp Pulse Resp BP Pulse Ox O2 Del Method 06/09/22 07:16 36.9 C 75 16 115/70 98 Room Air
[2022-06-09] MEDS: buPROPion XL 300 MG TABCR PO SCH (19:50)
[2022-06-09] MEDS: CALCIUM 600MG + VIT D 400 IU TAB PO SCH (19:51)
[2022-06-09] MEDS: DOCUSATE SODIUM/SENNA 50/8.6MG TAB PO SCH (19:51)
[2022-06-09] MEDS: MONTELUKAST SODIUM 10 MG TABLET PO SCH (19:52)
[2022-06-10] MEDS: LORazepam 0.5 MG TAB PO PRN (00:51)
[2022-06-10] MEDS: HYDROmorphone INJ 1 MG/ML SYRINGE IV PRN (01:56)
[2022-06-10 06:40] LABS: Hemoglobin 8.7 g/dl (12.0-16.0); Mean Corpuscular Hgb Conc 32.2 g/dL (32.0-36.0); Mean Corpuscular Volume 93.1 fL (80.0-100.0); Mean Platelet Volume 9.2 fL (9.4-12.3); Platelet Count 253 K/uL (130-400); RDW Coefficient of Variation 12.3 % (11.5-14.5); RDW Standard Deviation 41.9 fL (36.4-46.3); White Blood Count 9.34 K/ul (4.8-10.8)
[2022-06-10 07:13] LABS: BUN Creatinine Ratio 23.4 (10-20); Calcium 8.5 mg/dl (8.5-10.1); Creatinine Clr Calc Pharmacy 56.8 ml/min; Est GFR (African American) 59.1 ml/min; Potassium 3.8 mmol/L (3.5-5.1)
[2022-06-10] MEDS: MEGESTROL ACETATE 40 MG TAB PO SCH ×2 (07:30→20:23)
[2022-06-10] MEDS: HYDROCODONE/ACETAMOPHEN 5/325MG TAB PO PRN ×3 (07:55→20:32)
[2022-06-10] MEDS: dexAMETHasone 6 MG in SYRINGE 0 ML IV SCH (07:56)
[2022-06-10] MEDS: FERROUS SULFATE 325 MG TAB PO SCH (08:01)
[2022-06-10] MEDS: FLUTICASONE/VILANTEROL 100/25MCG 14 PUFFS/INHALER INH SCH (08:01)
[2022-06-10] MEDS: MAGNESIUM OXIDE 400 MG TAB PO SCH ×2 (08:01→20:27)
[2022-06-10] MEDS: CHOLECALCIFEROL 1,000 UNITS 25 MCG TAB PO SCH (08:01)
[2022-06-10] MEDS: LISINOPRIL/HCTZ 10/12.5MG TAB PO SCH (08:01)
--- NOTE | 2022-06-10 10:35 | Orthopedic Progress Note ---
Date of Service June 10, 2022 Assessment & Plan (1) Neurogenic claudication due to lumbar spinal stenosis: Plan: This time we will continue physical therapy monitor her KRYSTA output hopefully have her go to rehab as soon as bed is available and authorized. Admission and Anticipated Discharge Date Admission Date: June 07, 2022 Subjective Patient complaining of some left lateral thigh pain. She complains of restless leg syndrome. She states she is been unable to sleep. Physical Exam Physical Exam: On exam she is in the chair at the bedside. She appears comfortable. Is neurologically intact. Drain is functioning. Results & Data ([facility]) Vital Signs (Past 12 Hours) Vital Signs Temp Pulse Resp BP Pulse Ox O2 Del Method 06/10/22 07:35 36.7 C 87 20 135/82 100 Room Air
--- NOTE | 2022-06-10 11:30 | XRay Report ---
XR lumbar spine 2-3V CLINICAL HISTORY: post op standing films COMPARISON STUDY: Lumbar spine MRI 02/03/2022. FINDINGS: Moderate to severe levoscoliosis of the lumbar spine centered at the L2 level. L3-L4 liner roll changer ior decompression and fusion with pedicle screws and rods. The hardware appears intact. The disc spac er is in place and located at the anterior aspect of the intervertebral disc space. Mild to moderate disc space narrowing at L1-L2, L2-L3, L4-5. Severe disc space narrowing at L5-S1. There is a surgical drain noted at the laminectomy site. IMPRESSION: 1. No fractures within the lumbar spine. 2. Moderate to severe levoscoliosis. 3. L3-L4 posterior decompression and fusion. The hardware appears intact. ACT 112: Negative or not required by law. Electronically signed by: Clinton Strong M.D. 06/10/2022 11:29 AM
--- NOTE | 2022-06-10 16:39 | Hospitalist Progress Note ---
Date of Service June 10, 2022 Assessment & Plan (1) Status post lumbar surgery: Plan: S/P L2-L4 decompression and fusion by Dr Rojas 06/07 Continue incentive spirometry, PT/OT Per ortho for pain control, wound care, anticoagulation and activities (2) Acute blood loss anemia: Plan: Monitor H&H (EBL 200ml, hgb 8.5 was 9.4 yesterday). Pre-op hgb 12.1 Hemodynamically stable and asymptomatic Continue daily CBCs to monitor while admitted, transfuse for hgb <8 (3) Asthma: Plan: No acute exacerbation Continue home inhalers, albuterol prn (4) Chronic kidney disease (CKD): Plan: CKD III Cr: 1.14 (improved from baseline) Monitor renal functions, avoid nephrotoxic agents when possible (5) HTN (hypertension): Plan: resumed lisinopril, HCTZ--BP well controlled currently (6) Sleep apnea: Plan: CPAP HS (7) Endometrial cancer: Plan: Dx/d 2013; treated surgically + chemo Still following with oncology in [place]. Megace on hold for 1 month after surgery, per oncologist (8) Anxiety and depression: Plan Likely restless leg syndrome -trial of Requip Patient is medically stable for discharge. Discharge planning per primary service Admission and Anticipated Discharge Date Admission Date: June 07, 2022 Subjective Reports having difficult sleeping due to her legs being restless. At home, she walks around and eventually sleeps in the recliner Also reports ongoing chronic hip pain. Physical Exam Physical Exam: No acute distress, non toxic, pleasant Respiratory: breathing comfortably on room air, no wheezing/rhonchi Cardiovascular: regular rate and rhythm, no murmurs/rubs/gallops Gastrointestinal (Abdomen): soft, non tender Musculoskeletal: no edema Neurologic: awake, alert Results & Data Results & Data ([facility]) Vital Signs (Past 12 Hours) Vital Signs Temp Pulse Resp BP Pulse Ox O2 Del Method 06/10/22 15:54 37 C 84 20 124/73 95 06/10/22 07:35 36.7 C 87 20 135/82 100 Room Air Laboratory Results Short CBC 06/10/22 Range/Units 06:10 WBC 9.34 (4.8-10.8) K/ul Hgb 8.7 L (12.0-16.0) g/dl Hct 27.0 L (34.1-44.9) % Plt Count 253 (130-400) K/uL BMP 06/10/22 06:10 Sodium 138 Potassium 3.8 Chloride 104 Carbon Dioxide 28 BUN 26 H Creatinine 1.11 Glucose 91 Calcium 8.5 Medications Administered Current Inpatient Medications Acetaminophen (Acetaminophen 500 Mg Tab) 1,000 mg PO Q8H PRN PRN Reason: MILD Pain Scale 1,2,3 & Pre PT Stop: 07/07/22 14:17 Hydrocodone Bitart/Acetaminophen (Hydrocodone/Acetamophen 5/325mg Tab) 2 tab PO Q4HWA PRN PRN Reason: SEVERE Pain Stop: 06/22/22 12:50 Al Hydrox/Mg Hydrox/Simethicone (Aluminum/Magnesium Susp 30 Ml Udc) 30 ml PO Q6H PRN PRN Reason: Dyspepsia Stop: 07/07/22 14:17 Albuterol (Albuterol Hfa Inhaler 8.5 Gm) 1 puffs INH QID PRN PRN Reason: Shortness Of Breath Stop: 07/07/22 14:53 Albuterol (Albuterol 0.083% Nebu Soln 3 Ml Vial) 2.5 mg INH QIDR PRN; Protocol PRN Reason: Shortness Of Breath Or Wheezing Stop: 07/07/22 15:38 Bisacodyl (Bisacodyl 10 Mg Supp) 10 mg MO DAILY PRN PRN Reason: Constipation Stop: 07/07/22 14:17 Bupropion HCl (Bupropion Xl 300 Mg Tabcr) 300 mg PO QPM TESHA Stop: 07/07/22 20:59 Last Admin: 06/09/22 19:50 Dose: 300 mg Diphenhydramine HCl (Diphenhydramine Capsule 25 Mg Cap) 25 mg PO Q6H PRN PRN Reason: Allergic Rhinitis/Insomnia Stop: 07/07/22 14:17 Famotidine (Famotidine 20 Mg Tab) 20 mg PO DAILY PRN PRN Reason: gerd Stop: 07/07/22 14:17 Ferrous Sulfate (Ferrous Sulfate 325 Mg Tab) 325 mg PO QAM TESHA Stop: 07/08/22 08:59 Last Admin: 06/10/22 08:01 Dose: 325 mg Fluticasone/Vilanterol (Fluticasone/Vilanterol 100/25mcg 14 Puffs/Inhaler) 1 puffs INH DAILY TESHA; Protocol Stop: 07/08/22 08:59 Last Admin: 06/10/22 08:01 Dose: 1 puffs Lisinopril/HCTZ (Lisinopril/Hctz 10/12.5mg Tab) 1 tab PO QAM TESHA Stop: 07/08/22 08:59 Last Admin: 06/10/22 08:01 Dose: 1 tab Hydromorphone HCl (Hydromorphone Inj 0.5 Mg/0.5 Ml Syr) 0.5 mg IV Q3H PRN PRN Reason: MODERATE Pain (Scale 4,5,6) & Pre PT Stop: 06/21/22 14:17 Last Admin: 06/08/22 06:49 Dose: 0.5 mg Hydromorphone HCl (Hydromorphone Inj 1 Mg/Ml Syringe) 1 mg IV Q3H PRN PRN Reason: SEVERE Pain (Scale 7,8,9,10) Stop: 06/21/22 14:17 Last Admin: 06/10/22 01:56 Dose: 1 mg Hydroxyzine HCl (Hydroxyzine Hcl 25 Mg Tab) 25 mg PO Q8H PRN PRN Reason: Anxiety Stop: 07/07/22 14:17 Last Admin: 06/08/22 00:24 Dose: 25 mg Promethazine HCl 12.5 mg/ (Sodium Chloride) 50.5 mls @ 202 mls/hr IV Q6H PRN PRN Reason: Nausea &/or Vomiting Stop: 07/07/22 14:17 Lorazepam 0.5 mg/ Syringe 0.5 mls @ 2 mls/min IV Q8H PRN PRN Reason: Sedation/Anxiety Stop: 07/07/22 14:17 Lorazepam (Lorazepam 0.5 Mg Tab) 0.5 mg PO Q8H PRN PRN Reason: Sedation/Anxiety Stop: 07/07/22 14:17 Last Admin: 06/10/22 00:51 Dose: 0.5 mg Magnesium Hydroxide (Magnesium Hydroxide Susp 30 Ml Udc) 30 ml PO Q24H PRN PRN Reason: Constipation Stop: 07/07/22 14:17 Magnesium Oxide (Magnesium Oxide 400 Mg Tab) 400 mg PO BID TESHA Stop: 07/07/22 20:59 Last Admin: 06/10/22 08:01 Dose: 400 mg Megestrol Acetate (Megestrol Acetate 40 Mg Tab) 40 mg PO BID TESHA Stop: 07/07/22 20:59 Last Admin: 06/10/22 07:30 Dose: Not Given Metoclopramide HCl (Metoclopramide Hcl Inj 5 Mg/Ml 2 Ml Vial) 10 mg IV Q6H PRN PRN Reason: Nausea &/or Vomiting Stop: 07/07/22 14:17 Miscellaneous (Restasis: Order Awaiting Action) 1 each N/A QS TESHA Stop: 07/07/22 15:59 Last Admin: 06/10/22 16:41 Dose: Not Given Montelukast Sodium (Montelukast Sodium 10 Mg Tablet) 10 mg PO PM TESHA Stop: 07/07/22 20:59 Last Admin: 06/09/22 19:52 Dose: 10 mg Multivitamins/Minerals (Calcium 600mg + Vit D 400 Iu Tab) 1 tab PO QPM TESHA Stop: 07/07/22 20:59 Last Admin: 06/09/22 19:51 Dose: 1 tab Naloxone HCl (Naloxone Hcl 0.4 Mg/1 Ml Vial/Carp) 0.1 mg IV Q5M PRN PRN Reason: Oversedation/Resp depression Stop: 07/07/22 14:17 Ondansetron HCl (Ondansetron Inj 2 Mg/Ml 2 Ml Vial) 4 mg IV Q6H PRN PRN Reason: Nausea &/or Vomiting Stop: 07/07/22 14:17 Ondansetron HCl (Ondansetron 4 Mg Od Tab) 4 mg PO Q6H PRN PRN Reason: Nausea Stop: 07/07/22 14:17 Ropinirole HCl (Ropinirole Hcl 0.25 Mg Tablet) 0.25 mg PO HS TESHA Stop: 07/10/22 20:59 Senna/Docusate Sodium (Docusate Sodium/Senna 50/8.6mg Tab) 2 tab PO HS TESHA Stop: 07/07/22 20:59 Last Admin: 06/09/22 19:51 Dose: 2 tab Sodium Biphosphate/Sodium Phosphate (Sod Phosphate/Sod Biphosphate Enema 132 Ml Btl) 132 ml MO ONE PRN PRN Reason: Constipation Stop: 07/07/22 14:17 Tramadol HCl (Tramadol Hcl 50 Mg Tablet) 50 - 100 mg PO Q4H PRN PRN Reason: Moderate-Severe pain & Pre PT Stop: 07/07/22 14:17 Last Admin: 06/08/22 15:15 Dose: 100 mg Vitamin D (Cholecalciferol 1,000 Units 25 Mcg Tab) [facility] [place] Stop: 07/08/22 08:59 Last Admin: 06/10/22 08:01 Dose: 2,000 units
[2022-06-10] MEDS: DOCUSATE SODIUM/SENNA 50/8.6MG TAB PO SCH (20:23)
[2022-06-10] MEDS: buPROPion XL 300 MG TABCR PO SCH (20:27)
[2022-06-10] MEDS: MONTELUKAST SODIUM 10 MG TABLET PO SCH (20:28)
[2022-06-10] MEDS: rOPINIRole HCL 0.25 MG TABLET PO SCH (20:28)
[2022-06-10] MEDS: CALCIUM 600MG + VIT D 400 IU TAB PO SCH (20:28)
[2022-06-10] MEDS: HYDROmorphone INJ 0.5 MG/0.5 ML SYR IV PRN (21:26)
[2022-06-11] MEDS: MEGESTROL ACETATE 40 MG TAB PO SCH ×2 (08:34→20:45)
[2022-06-11] MEDS: FLUTICASONE/VILANTEROL 100/25MCG 14 PUFFS/INHALER INH SCH (08:51)
[2022-06-11] MEDS: LISINOPRIL/HCTZ 10/12.5MG TAB PO SCH (08:51)
[2022-06-11] MEDS: FERROUS SULFATE 325 MG TAB PO SCH (08:51)
[2022-06-11] MEDS: CHOLECALCIFEROL 1,000 UNITS 25 MCG TAB PO SCH (08:51)
[2022-06-11] MEDS: MAGNESIUM OXIDE 400 MG TAB PO SCH ×2 (08:51→20:45)
[2022-06-11] MEDS: HYDROCODONE/ACETAMOPHEN 5/325MG TAB PO PRN ×2 (08:54→18:02)
--- NOTE | 2022-06-11 08:59 | Orthopedic Progress Note ---
Date of Service June 11, 2022 Assessment & Plan (1) Status post lumbar surgery: Plan: Patient is postoperative day for lumbar decompression and instrumented fusion. She is doing well. We will continue with physical therapy today. She is orthopedically stable for discharge once authorization and bed availability has been achieved. Admission and Anticipated Discharge Date Admission Date: June 07, 2022 Hipolito Calabrese is postoperative day 4 from posterior lumbar decompression instrumented fusion of L3-4. She states her restless leg syndromes which are pre-existing are her biggest complaint. Also has chronic right hip pain. Lumbar x-rays were ordered and performed yesterday. No acute findings. She had a bowel movement. KRYSTA drain output last shift was 30 cc. Yesterday in physical therapy she was ambulating 180 feet. We are currently awaiting bed availability insurance authorization for rehab at [facility]. Review of Systems Review of Systems: All systems reviewed & are unremarkable except as noted in HPI & below Physical Exam Physical Exam: She is sitting up in bed eating breakfast. No acute distress. Strength is intact bilateral lower extremities. Lumbar dressing is clean dry and intact with functioning KRYSTA drain. Calves are soft and nontender bilaterally. Strength is intact bilateral lower extremities. Results & Data ([facility]) Vital Signs (Past 12 Hours) Vital Signs Temp Pulse Resp BP BP Pulse Ox O2 Del Method 06/11/22 08:47 37.1 C 85 18 144/85 H 99 Room Air 06/11/22 01:07 36.5 C 77 16 105/70 98 Room Air Diagnostic Findings [place], [place] [phone] XRay Report Patient:KHURRAM VIRGEN Admit Date:06/07/22 MR#:[id number] Address1:[facility] [address] Acct ID:[id number] Address2: Date:1955 [facility] Zip:[place] [address] Age:66 Location:3E Sex:F Room/Bed:[facility] [place] Att Phy:Heron Rojas D.O. Diagnosis:Spinal Stenosis, Lumbar Region with Neurogenic, Cl Demi Phy:Austin Disla DO Service Date:06/10/22 Fam Phy: Interpreting Phy:Clinton Strong MDAit Phy:Heron Rojas D.O. Ordering Phy:Heron Rojas D.O. cc: ~ XR lumbar spine 2-3V CLINICAL HISTORY: post op standing films COMPARISON STUDY: Lumbar spine MRI 02/03/2022. FINDINGS: Moderate to severe levoscoliosis of the lumbar spine centered at the L2 level. L3-L4 posterior decompression and fusion with pedicle screws and rods. The hardware appears intact. The disc spacer is in place and located at the anterior aspect of the intervertebral disc space. Mild to moderate disc space narrowing at L1-L2, L2-L3, L4-5. Severe disc space narrowing at L5-S1. There is a surgical drain noted at the laminectomy site. IMPRESSION: 1. No fractures within the lumbar spine. 2. Moderate to severe levoscoliosis. 3. L3-L4 posterior decompression and fusion. The hardware appears intact. ACT 112: Negative or not required by law. Electronically signed by: Clinton Strong M.D. 06/10/2022 11:29 AM Dictated:06/10/22 1127 Transcribed: 06/10/22 1127
--- NOTE | 2022-06-11 17:40 | Hospitalist Progress Note ---
Date of Service June 11, 2022 Assessment & Plan (1) Status post lumbar surgery: Plan: S/P L2-L4 decompression and fusion by Dr Rojas 06/07 Continue incentive spirometry, PT/OT Per ortho for pain control, wound care, anticoagulation and activities (2) Acute blood loss anemia: Plan: Monitor H&H (EBL 200ml, hgb 8.5 was 9.4 yesterday). Pre-op hgb 12.1 --> 9.4--> 8.5--> 8.7 Hemodynamically stable and asymptomatic (3) Asthma: Plan: No acute exacerbation Continue home inhalers, albuterol prn (4) Chronic kidney disease (CKD): Plan: CKD III Cr: 1.14 (improved from baseline) Monitor renal functions, avoid nephrotoxic agents when possible (5) HTN (hypertension): Plan: resumed lisinopril, HCTZ--BP well controlled currently (6) Sleep apnea: Plan: CPAP HS (7) Endometrial cancer: Plan: Dx/d 2013; treated surgically + chemo Still following with oncology in [place]. Megace on hold for 1 month after surgery, per oncologist (8) Anxiety and depression: Plan Likely restless leg syndrome -trial of Requip 06/10--> will continue tonight, can increase to 0.5mg tomorrow if 0.25mg is not effective Patient is medically stable for discharge. Discharge planning per primary service Admission and Anticipated Discharge Date Admission Date: June 07, 2022 Subjective Still with restless/burning legs at night time making it difficult for her to sleep. Requip started yesterday evening Physical Exam Physical Exam: Sitting in chair, no acute distress, non toxic Respiratory: Breathing comfortably on room air, no wheezing/rhonchi Cardiovascular: regular rate and rhythm, no murmurs/rubs Gastrointestinal (Abdomen): soft, non tender, non distended Musculoskeletal: no edema Neurologic: awake, alert Results & Data Results & Data ([facility]) Vital Signs (Past 12 Hours) Vital Signs Temp Pulse Pulse Resp BP Pulse Ox O2 Del Method 06/11/22 15:38 36.6 C 83 20 109/73 98 Room Air 06/11/22 08:47 37.1 C 85 18 144/85 H 99 Room Air
[2022-06-11] MEDS: DOCUSATE SODIUM/SENNA 50/8.6MG TAB PO SCH (20:45)
[2022-06-11] MEDS: rOPINIRole HCL 0.25 MG TABLET PO SCH (20:45)
[2022-06-11] MEDS: MONTELUKAST SODIUM 10 MG TABLET PO SCH (20:45)
[2022-06-11] MEDS: buPROPion XL 300 MG TABCR PO SCH (20:45)
[2022-06-11] MEDS: CALCIUM 600MG + VIT D 400 IU TAB PO SCH (20:45)
[2022-06-12] MEDS: HYDROCODONE/ACETAMOPHEN 5/325MG TAB PO PRN ×3 (02:22→13:11)
[2022-06-12] MEDS: MEGESTROL ACETATE 40 MG TAB PO SCH (06:53)
[2022-06-12] MEDS: FLUTICASONE/VILANTEROL 100/25MCG 14 PUFFS/INHALER INH SCH (08:57)
[2022-06-12] MEDS: MAGNESIUM OXIDE 400 MG TAB PO SCH (08:57)
[2022-06-12] MEDS: LISINOPRIL/HCTZ 10/12.5MG TAB PO SCH (08:57)
[2022-06-12] MEDS: FERROUS SULFATE 325 MG TAB PO SCH (08:57)
[2022-06-12] MEDS: CHOLECALCIFEROL 1,000 UNITS 25 MCG TAB PO SCH (08:57)
--- NOTE | 2022-06-12 11:31 | Hospitalist Progress Note ---
Date of Service June 12, 2022 Assessment & Plan (1) Status post lumbar surgery: Plan: S/P L2-L4 decompression and fusion by Dr Rojas 06/07 Continue incentive spirometry, PT/OT Per ortho for pain control, wound care, anticoagulation and activities (2) Acute blood loss anemia: Plan: Hb remains above 8, no symptoms of anemia. Patient does not meet indications for transfusion (3) Asthma: Plan: No acute exacerbation Continue home inhalers, albuterol prn (4) Chronic kidney disease (CKD): Plan: CKD III Cr: 1.14 (improved from baseline) Monitor renal functions, avoid nephrotoxic agents when possible (5) HTN (hypertension): Plan: Continued on lisinopril, HCTZ with well control of blood pressure and no symptoms of light headedness/dizziness (6) Sleep apnea: Plan: CPAP HS (7) Endometrial cancer: Plan: OP follow up with Oncologist (8) Anxiety and depression: Plan Likely restless leg syndrome -trial of Requip 06/10 with improvement in her symptoms and restful night sleep. would recommend continue at current dose, up titration as need OP Patient is medically stable for discharge. Discharge planning per primary service Admission and Anticipated Discharge Date Admission Date: June 07, 2022 Subjective Patient slept well last night, denies restless leg syndrome (after 2 nights of receiving Requip) Feels well overall Physical Exam Physical Exam: Sitting in chair, no acute distress, pleasant and comfortable Respiratory: Breathing comfortably on room air, no wheezing/rhonchi/rales Cardiovascular: regular rate and rhythm, no murmurs/rubs/gallops Gastrointestinal (Abdomen): soft, non tender Musculoskeletal: no edema Neurologic: awake, alert, spontaneously moving extremities Results & Data Results & Data ([facility]) Vital Signs (Past 12 Hours) Vital Signs Temp Pulse Pulse Resp BP Pulse Ox O2 Del Method 06/12/22 10:56 37.2 C 88 82 18 111/74 96 06/12/22 07:49 37.2 C 88 18 111/74 96 Room Air Medications Administered Current Inpatient Medications Acetaminophen (Acetaminophen 500 Mg Tab) 1,000 mg PO Q8H PRN PRN Reason: MILD Pain Scale 1,2,3 & Pre PT Stop: 07/07/22 14:17 Hydrocodone Bitart/Acetaminophen (Hydrocodone/Acetamophen 5/325mg Tab) 2 tab PO Q4HWA PRN PRN Reason: SEVERE Pain Stop: 06/22/22 12:50 Last Admin: 06/12/22 08:57 Dose: 2 tab Al Hydrox/Mg Hydrox/Simethicone (Aluminum/Magnesium Susp 30 Ml Udc) 30 ml PO Q6H PRN PRN Reason: Dyspepsia Stop: 07/07/22 14:17 Albuterol (Albuterol Hfa Inhaler 8.5 Gm) 1 puffs INH QID PRN PRN Reason: Shortness Of Breath Stop: 07/07/22 14:53 Albuterol (Albuterol 0.083% Nebu Soln 3 Ml Vial) 2.5 mg INH QIDR PRN; Protocol PRN Reason: Shortness Of Breath Or Wheezing Stop: 07/07/22 15:38 Bisacodyl (Bisacodyl 10 Mg Supp) 10 mg TN DAILY PRN PRN Reason: Constipation Stop: 07/07/22 14:17 Bupropion HCl (Bupropion Xl 300 Mg Tabcr) 300 mg PO QPM TESHA Stop: 07/07/22 20:59 Last Admin: 06/11/22 20:45 Dose: 300 mg Diphenhydramine HCl (Diphenhydramine Capsule 25 Mg Cap) 25 mg PO Q6H PRN PRN Reason: Allergic Rhinitis/Insomnia Stop: 07/07/22 14:17 Famotidine (Famotidine 20 Mg Tab) 20 mg PO DAILY PRN PRN Reason: gerd Stop: 07/07/22 14:17 Ferrous Sulfate (Ferrous Sulfate 325 Mg Tab) 325 mg PO QAM TESHA Stop: 07/08/22 08:59 Last Admin: 06/12/22 08:57 Dose: 325 mg Fluticasone/Vilanterol (Fluticasone/Vilanterol 100/25mcg 14 Puffs/Inhaler) 1 puffs INH DAILY TESHA; Protocol Stop: 07/08/22 08:59 Last Admin: 06/12/22 08:57 Dose: 1 puffs Lisinopril/HCTZ (Lisinopril/Hctz 10/12.5mg Tab) 1 tab PO QAM TESHA Stop: 07/08/22 08:59 Last Admin: 06/12/22 08:57 Dose: 1 tab Hydromorphone HCl (Hydromorphone Inj 0.5 Mg/0.5 Ml Syr) 0.5 mg IV Q3H PRN PRN Reason: MODERATE Pain (Scale 4,5,6) & Pre PT Stop: 06/21/22 14:17 Last Admin: 06/10/22 21:26 Dose: 0.5 mg Hydromorphone HCl (Hydromorphone Inj 1 Mg/Ml Syringe) 1 mg IV Q3H PRN PRN Reason: SEVERE Pain (Scale 7,8,9,10) Stop: 06/21/22 14:17 Last Admin: 06/10/22 01:56 Dose: 1 mg Hydroxyzine HCl (Hydroxyzine Hcl 25 Mg Tab) 25 mg PO Q8H PRN PRN Reason: Anxiety Stop: 07/07/22 14:17 Last Admin: 06/08/22 00:24 Dose: 25 mg Promethazine HCl 12.5 mg/ (Sodium Chloride) 50.5 mls @ 202 mls/hr IV Q6H PRN PRN Reason: Nausea &/or Vomiting Stop: 07/07/22 14:17 Lorazepam 0.5 mg/ Syringe 0.5 mls @ 2 mls/min IV Q8H PRN PRN Reason: Sedation/Anxiety Stop: 07/07/22 14:17 Lorazepam (Lorazepam 0.5 Mg Tab) 0.5 mg PO Q8H PRN PRN Reason: Sedation/Anxiety Stop: 07/07/22 14:17 Last Admin: 06/10/22 00:51 Dose: 0.5 mg Magnesium Hydroxide (Magnesium Hydroxide Susp 30 Ml Udc) 30 ml PO Q24H PRN PRN Reason: Constipation Stop: 07/07/22 14:17 Magnesium Oxide (Magnesium Oxide 400 Mg Tab) 400 mg PO BID [facility] Stop: 07/07/22 20:59 Last Admin: 06/12/22 08:57 Dose: 400 mg Megestrol Acetate (Megestrol Acetate 40 Mg Tab) 40 mg PO BID TESHA Stop: 07/07/22 20:59 Last Admin: 06/12/22 06:53 Dose: Not Given Metoclopramide HCl (Metoclopramide Hcl Inj 5 Mg/Ml 2 Ml Vial) 10 mg IV Q6H PRN PRN Reason: Nausea &/or Vomiting Stop: 07/07/22 14:17 Miscellaneous (Restasis: Order Awaiting Action) 1 each N/A QS TESHA Stop: 07/07/22 15:59 Last Admin: 06/12/22 06:53 Dose: Not Given Montelukast Sodium (Montelukast Sodium 10 Mg Tablet) 10 mg PO PM TESHA Stop: 07/07/22 20:59 Last Admin: 06/11/22 20:45 Dose: 10 mg Multivitamins/Minerals (Calcium 600mg + Vit D 400 Iu Tab) 1 tab PO QPM TESHA Stop: 07/07/22 20:59 Last Admin: 06/11/22 20:45 Dose: 1 tab Naloxone HCl (Naloxone Hcl 0.4 Mg/1 Ml Vial/Carp) 0.1 mg IV Q5M PRN PRN Reason: Oversedation/Resp depression Stop: 07/07/22 14:17 Ondansetron HCl (Ondansetron Inj 2 Mg/Ml 2 Ml Vial) 4 mg IV Q6H PRN PRN Reason: Nausea &/or Vomiting Stop: 07/07/22 14:17 Ondansetron HCl (Ondansetron 4 Mg Od Tab) 4 mg PO Q6H PRN PRN Reason: Nausea Stop: 07/07/22 14:17 Ropinirole HCl (Ropinirole Hcl 0.25 Mg Tablet) 0.25 mg PO HS TESHA Stop: 07/10/22 20:59 Last Admin: 06/11/22 20:45 Dose: 0.25 mg Senna/Docusate Sodium (Docusate Sodium/Senna 50/8.6mg Tab) 2 tab PO HS TESHA Stop: 07/07/22 20:59 Last Admin: 06/11/22 20:45 Dose: Not Given Sodium Biphosphate/Sodium Phosphate (Sod Phosphate/Sod Biphosphate Enema 132 Ml Btl) 132 ml TN ONE PRN PRN Reason: Constipation Stop: 07/07/22 14:17 Tramadol HCl (Tramadol Hcl 50 Mg Tablet) 50 - 100 mg PO Q4H PRN PRN Reason: Moderate-Severe pain & Pre PT Stop: 07/07/22 14:17 Last Admin: 06/08/22 15:15 Dose: 100 mg Vitamin D (Cholecalciferol 1,000 Units 25 Mcg Tab) 2,000 units PO QAM TESHA Stop: 07/08/22 08:59 Last Admin: 06/12/22 08:57 Dose: 2,000 units
== END 2022-06-12 13:18 | DRG 454 ==
LOC: ASU 08:20 → 3E 12:31